=== PATIENT | male | born 1985 | race African-American/Black ===

== ENCOUNTER 2017-02-11 08:27 | Observation (INO) | payer OTHER ==
[~2017-02-11] VITALS: Ht 182.9 cm; Wt 101.6 kg
--- NOTE | ~2017-02-11 | HP ---
Unit #: [id number] #: [id number] Patient: HERMES MASTERS [id number] [address] [place], [place] [address] [id number] E MR#: [id number] NAME: HERMES MASTERS ROOM: Age: 31 Sex: M Admission Date: 02/11/2017 : 1985 Attending Physician: Urvashi Garrido M.D. HISTORY AND PHYSICAL CHIEF COMPLAINT Eye swelling. HISTORY OF PRESENT ILLNESS The patient is a 31-year-old male with no significant past medical history who presented to the emergency room complaining of eye swelling. The patient woke up early this morning and noticed the eye swelling associated with pain. Patient denies any trauma to the eye. Patient denies any IV drug abuse. Patient denies noticing any spider when he woke up early this morning. Patient had a CT of the face with contrast that showed periorbital cellulitis and a small 1 cm abscess just deep to subcutaneous tissue. Patient is being admitted for the above reasons. PAST MEDICAL HISTORY None. PAST SURGICAL HISTORY None. HOME MEDICATIONS None. ALLERGIES No known drug allergies. SOCIAL HISTORY He smokes two packs per day, drinks alcohol occasionally, and denies any illicit drug abuse. FAMILY HISTORY Reviewed and none. REVIEW OF SYSTEMS Positive for eye swelling and positive for closure of the eyelid with tenderness. All other systems have been reviewed and none. PHYSICAL EXAMINATION GENERAL: Patient is lying in bed not in acute distress. VITAL SIGNS: Temperature 98.5, pulse 77, respiratory rate 18, blood pressure 126/72, and saturating 97% on room air. HEENT: Head atraumatic, normocephalic. Left eye with swelling, tenderness, and area of induration around the left eyelashes with no conjunctival chemosis or injection. HEART: Regular rate and rhythm. Unit #: [id number] #: [id number] Patient: HERMES MASTERS ABDOMEN: Soft. Positive bowel sounds. EXTREMITIES: No cyanosis, no clubbing. NEUROLOGIC: Alert, awake, and oriented. No gross focal motor deficit. PSYCHIATRIC: Mood and affect are appropriate. MUSCULOSKELETAL: No joint pain. DIAGNOSTIC STUDIES LABORATORY: WBC 8.2, hemoglobin 14.9, hematocrit 44.6, and platelets 174,000. Sodium 139, potassium 4.2, chloride 104, bicarb 29, glucose 97, BUN 7, creatinine 1.2, AST 25, ALT 22, and albumin 4. IMAGING: CT of the face with contrast shows periorbital cellulitis and a small 1 cm abscess just deep to subcutaneous tissue and is status post I and D. ASSESSMENT 1. Periorbital cellulitis. 2. Small abscess status post I and D. PLAN Admit the patient to observation with telemetry. Continue with IV antibiotics of clindamycin. Check urine toxicology. Will have Ophthalmology evaluation for the periorbital cellulitis, and further recommendations will follow as more lab results are available. Dictated by Sean Lemus TD: 02/11/2017 17:54 JOB #: [id number] HISTORY AND PHYSICAL Page 1 of 1 X DAILY SHERWOOD MD X HISTORY AND PHYSICAL
--- NOTE | ~2017-02-11 | DS ---
Unit #: [id number] #: [id number] Patient: HERMES MASTERS [id number] [address] [address] [id number] I MR#: [id number] NAME: HERMES MASTERS ROOM: 463 Age: 31 Sex: M Admission Date: 02/11/2017 : 1985 Discharge Date: 02/13/2017 Attending Physician: Susan Chapman M.D. Primary Care Physician: No Primary Care Physician DISCHARGE SUMMARY REASON FOR ADMISSION Periorbital cellulitis. HISTORY OF PRESENT ILLNESS/HOSPITAL COURSE Please refer to H and P for complete details. Patient otherwise a 31-year-old healthy male with no significant past medical history presented with left-sided facial swelling around the eye. He underwent a CT of the face with contrast which showed periorbital cellulitis and a small 1 cm abscess. He was seen and evaluated in the emergency room. He underwent I/D of the aforementioned abscess. Final wound cultures are resulted, not yielding any acute bacterial growth. Blood cultures were otherwise negative at this hospital course. Patient was placed on IV clindamycin while here. His eye and/or swelling have responded appropriately. Consultations were placed to ophthalmology as well as infectious disease services but Dr. Gould of ophthalmology has recommended appropriate outpatient followup in three to four days. Appropriate phone numbers have been given. At this point in time patient is clinically stable for discharge. FINAL DISCHARGE DIAGNOSIS Periorbital cellulitis. FINAL DISCHARGE MEDICATIONS Clindamycin 600 mg p.o. q.8 h. x7 days. DISCHARGE CONDITION Stable. DISCHARGE DISPOSITION Home. Dictated by... Sean Bennett/doris TD: 02/15/2017 15:27 JOB #: [id number] Unit #: [id number] #: [id number] Patient: HERMES MASTERS DISCHARGE SUMMARY Page 1 of 1 X Susan Chapman MD X DISCHARGE SUMMARY
--- NOTE | ~2017-02-11 | CT99 ---
[facility] A Service of [facility] RADIOLOGY TEXT RESULTS PATIENT: HERMES MASTERS LOCATION: C3A 302-01 : [birth year] UNIT #: [id number] AGE: [address]: Susan Chapman MD SEX: M ORDER DR: [id number] [facility] [address] [facility]. [place], [place] [address] [id number] E MR#: [id number] Acc #: [id number] NAME: HERMES MASTERS : 1985 SEX: M STUDY DATE/TIME: 02/11/2017 11:58 UNIT: [facility] ROOM: STUDY DESCRIPTION: CT Maxillofacial Area W Cont Attending Physician: Urvashi Garrido M.D. Ordering Physician: Urvashi Garrido M.D. MEDICAL IMAGING REPORT This report is preliminary unless electronic signature is present EXAM CT face with contrast 02/11/2017 HISTORY Left eye swelling since this morning with questionable periorbital cellulitis. COMPARISON None. TECHNIQUE 2 mm axial images through the face after IV contrast administration. Sagittal and coronal reformatted images were obtained. Images were viewed at both bone and soft tissue windows. This CT exam was performed with one or more of the following radiation dose reduction techniques: automatic exposure control, adjustment of mA and/or kV according to patient size, and iterative reconstruction. FINDINGS A 10 x 7 mm peripherally enhancing fluid collection is demonstrated within the left facial soft tissues, lateral to the left orbit, thought to represent a small abscess. Extensive left periorbital left facial soft tissue swelling and soft tissue enhancement and skin thickening are seen, consistent with the clinical suspicion of periorbital cellulitis. The globes, optic nerves and rectus muscles appear within normal limits. Retrobulbar fat appears clear, without cellulitic change. There is mild generalized paranasal sinus mucosal thickening, most pronounced in the wuvcy-udmryfc-zhpf-left ethmoid sinuses. Mastoid air [facility] A Service of [facility] RADIOLOGY TEXT RESULTS PATIENT: HERMES MASTERS LOCATION: C3A 302-01 : [birth year] UNIT #: [id number] AGE: [address]: Susan Chapman MD SEX: M ORDER DR: cells are clear. No TMJ dislocation. Imaged portion of the brain parenchyma appears unremarkable. Imaged calvaria is within normal limits. IMPRESSION 1. Extensive left periorbital left facial soft tissue swelling with enhancement consistent with the stated suspected history of periorbital cellulitis. There is a small 1 cm suspected abscess within the left facial soft tissues just deep to the skin surface. 2. Mild generalized paranasal sinus disease, greatest in the ethmoid sinuses. Dictated by... Alyssia Silva M.D. THIS IS AN ELECTRONICALLY VERIFIED REPORT Alyssia Silva M.D. at 02/12/2017 1:53 PM FLORIAN/valeria TD: 02/11/2017 15:57 JOB #: [id number] MEDICAL IMAGING REPORT Page 1 of 1 COPY
--- NOTE | ~2017-02-11 | CO ---
Unit #: [id number] #: [id number] Patient: HERMES BRAVO [id number] [facility]. [place] [id number] [facility]. [place], [place] [address] [id number] I MR#: [id number] NAME: HERMES BRAVO ROOM: 463 Age: 31 Sex: M Admission Date: 02/11/2017 : 1985 Attending Physician: Susan Chapman M.D. Primary Care Physician: No Primary Care Physician Requesting Physician: Susan Chapman M.D. CONSULTATION REPORT REASON FOR CONSULTATION Antibiotic management. HISTORY OF PRESENT ILLNESS Mr. Bravo is a 31-year-old -Swiss gentleman with no significant past medical history, who is a current every-day smoker, who presented to the emergency room yesterday with complaints of left eye swelling. Stated that he woke up in the morning and noticed that his eye was swollen and he noticed also some additional pain. He is being followed by chargeback analyst as well. He had a CT scan of his maxillofacial area which showed extensive left periorbital/left facial soft tissue swelling with enhancement consistent with periorbital cellulitis as well as a small suspected abscess within the left facial soft tissue and just deep to the skin surface. Per the patient, he had the abscess drained in the ER. Current culture from that is no growth to date. Patient has been started on clindamycin and, per his girlfriend as well as him it has been improving except for a small area with a slight bump. That still has some drainage. PAST MEDICAL HISTORY None. PAST SURGICAL HISTORY None. CURRENT MEDICATIONS Include clindamycin. ALLERGIES No known allergies. SOCIAL HISTORY The patient has occasional alcohol use as well as is a smoker. He denies any illicit drug use. FAMILY HISTORY Family history is noncontributory. REVIEW OF SYSTEMS All negative except for those stated in HPI. PHYSICAL EXAMINATION GENERAL: Patient is up walking around and at this point is sitting at the Unit #: [id number] #: [id number] Patient: HERMES BRAVO side of the bed. VITAL SIGNS: Current temperature is 97.7, heart rate 69, respirations 16, blood pressure was 116/79. HEENT: Normocephalic. Left eye with swelling, tenderness, area of induration. No drainage or injection. Noted circular area of edema to the left of the eye. CARDIOVASCULAR: Regular rate. ABDOMEN: Soft, no tenderness, positive bowel sounds. CHEST: Clear to auscultation, nonlabored. NEUROLOGICAL: Awake and appropriate, walking around room. SKIN: Skin is dry and intact. DIAGNOSTIC STUDIES LABORATORY: Creatinine is 1.0, glucose 93, BUN of 6, sodium is 140, chloride is 104, white count 7.4, hemoglobin is 14.7, blood cultures are no growth to date. Facial abscess with no organism seen on stain. ASSESSMENT Left periorbital cellulitis: Per the patient and discussion with staff it appears to be improving on current clindamycin. At this point will continue the same and follow up and monitor eye closely. If any changes in the exam or any worsening, will most likely need to adjust antibiotics but for now will continue with IV antibiotics. Discussed patient with Dr. Jordan, who will see patient later in the day and further recommendations to come from him. Thank you for the consultation. Dictated by... Magui Vilchis APRN for Jesus Jordan M.D. SHARI/doris TD: 02/12/2017 20:20 JOB #: [id number] CONSULTATION REPORT Page 1 of 1 X X CONSULTATION REPORT
[2017-02-11 10:31] LABS: BASOPHIL# 0.1 X10e3 (0-0.3); BASOPHIL% 0.8 % (0-2.5); EOSINOPHIL# 0.2 X10e3 (0-0.7); EOSINOPHIL% 2.6 % (0.0-7.0); HEMATOCRIT 44.6 % (38.0-50.0); HEMOGLOBIN 14.9 gm/dL (13.0-16.0); LYMPHOCYTE# 2.4 X10e3 (1.0-3.5); LYMPHOCYTE% 28.7 % (17.0-45.0); MEAN CORPUSCULAR HEMOGLOBIN 31.8 PG (28-34); MEAN CORPUSCULAR HGB CONC 33.5 g/dL (30-36); MEAN PLATELET VOLUME 9.4 FL (6.5-11.5); MONOCYTE# 0.9 X10e3 (0-1.0); MONOCYTE% 11.3 % (3.0-12.0); NEUTROPHIL# 4.6 X10e3 (1.5-7.1); NEUTROPHIL% 56.6 % (40-75); PLATELET COUNT 174 X10e3 (140-420); RED BLOOD COUNT 4.69 X10e (3.90-5.60); RED CELL DISTRIBUTION WIDTH 12.8 % (11.0-15.5); WHITE BLOOD COUNT 8.2 X10e3 (4.0-10.5)
[2017-02-11 10:33] LABS: DIFF IND NO
[2017-02-11 10:57] LABS: BILIRUBIN, DIRECT 0.1 mg/dL (0.0-0.2); BILIRUBIN,INDIRECT 0.3 mg/dL (0.0-0.9); BILIRUBIN,TOTAL 0.4 mg/dL (0.2-2.0); BUN/CREATININE RATIO 5.83; CALCIUM SERUM 9.1 mg/dL (8.4-10.2); CREATININE SERUM 1.2 mg/dL (0.6-1.4); GLOM FILT RATE Estimated 94.2 mL/min (>60); POTASSIUM 4.2 mmol/L (3.5-5.1); PROTEIN TOTAL SERUM 7.5 g/dL (6.0-8.3)
[2017-02-11] MEDS ORDERED: NO MEDICATIONS (14:23)
[2017-02-11 17:05] LABS: AMPHETAMINE NEG (NEG); BARBITURATES NEG (NEG); BENZODIAZEPINES NEG (NEG); COCAINE NEG (NEG); MARIJUANA POS (NEG); OPIATES NEG (NEG); TRICYCLIC ANTIDEPRESSANTS NEG (NEG); U METHADONE NEG (NEG)
[2017-02-12 05:05] LABS: BASOPHIL% 0.4 % (0-2.5); EOSINOPHIL# 0.3 X10e3 (0-0.7); EOSINOPHIL% 4.2 % (0.0-7.0); HEMATOCRIT 42.9 % (38.0-50.0); HEMOGLOBIN 14.7 gm/dL (13.0-16.0); LYMPHOCYTE# 2.3 X10e3 (1.0-3.5); LYMPHOCYTE% 30.8 % (17.0-45.0); MEAN CELL VOLUME 94.1 FL (83-96); MEAN CORPUSCULAR HEMOGLOBIN 32.2 PG (28-34); MEAN CORPUSCULAR HGB CONC 34.2 g/dL (30-36); MEAN PLATELET VOLUME 9.6 FL (6.5-11.5); MONOCYTE# 0.9 X10e3 (0-1.0); MONOCYTE% 12.4 % (3.0-12.0); NEUTROPHIL# 3.9 X10e3 (1.5-7.1); NEUTROPHIL% 52.2 % (40-75); PLATELET COUNT 161 X10e3 (140-420); RED BLOOD COUNT 4.55 X10e (3.90-5.60); RED CELL DISTRIBUTION WIDTH 12.6 % (11.0-15.5); WHITE BLOOD COUNT 7.4 X10e3 (4.0-10.5)
[2017-02-12 05:11] LABS: DIFF IND NO
[2017-02-12 05:44] LABS: CALCIUM SERUM 9.1 mg/dL (8.4-10.2); GLOM FILT RATE Estimated 117.4 mL/min (>60); POTASSIUM 4.3 mmol/L (3.5-5.1)
[2017-02-13] MEDS ORDERED: CLEOCIN PO (10:20)
== END 2017-02-13 12:00 | disposition home or self-care (01) ==
LOC: CED 08:27 → C4C 15:45 → C3A PCU 15:45 → CED 15:45 → C3A PCU 15:45 → CED 16:02 → C3A PCU 16:02 → C4C 02-12 19:58
PROVIDERS: Emergency Medicine; Internal Medicine
DX: L03.213 Periorbital cellulitis (principal); F17.210 Nicotine dependence, cigarettes, uncomplicated
CPT/HCPCS: 10061; 36415; 70487; 80048; 80076; 80307; 83605; 85025; 87040; 87070; 87205; 90471; 90715; 96360; 96361; 96365; 96372; 96375; 96376; 99285; G0378; J1650; J3370; Q9967